=== PATIENT | female | born 1970 | race Caucasian/White ===

== ENCOUNTER 2024-07-30 23:14 | Emergency (ER) | payer OTHER, SELFPAY ==
[2024-07-31] MEDS ORDERED: cloNIDine 0.1 MG TAB ONE (00:06)
== END 2024-07-31 00:35 | disposition home or self-care (01) ==
LOC: ERS 23:14
DX: I10 Essential (primary) hypertension (principal); I73.00 Raynaud's syndrome without gangrene; F17.210 Nicotine dependence, cigarettes, uncomplicated
CPT/HCPCS: 99282